=== PATIENT | male | born 1925 | race Caucasian/White ===

== ENCOUNTER 2016-05-20 11:44 | Emergency (ER) | payer MEDICARE, OTHER ==
[~2016-05-20] VITALS: Ht 172.7 cm; Wt 72.0 kg
[2016-05-20 12:23] LABS: BASOPHILS % (AUTO) 1 % (0-2); EOSINOPHILS # (AUTO) 0.4 10^3uL; EOSINOPHILS % (AUTO) 6 % (0-4); LYMPHOCYTES # (AUTO) 1.3 X10^3; MEAN CORPUSCULAR HGB CONC 33.5 g/dL (31.0-37.0); MEAN CORPUSCULAR VOLUME 90 FL (80-100); MEAN PLATELET VOLUME 8.9 FL (6.0-9.5); MONOCYTES # (AUTO) 0.5 X10^3; MONOCYTES % (AUTO) 8 % (3-11); NEUTROPHILS # (AUTO) 4.3 X10^3; NEUTROPHILS % (AUTO) 66 % (51-67); PLATELET COUNT 169 10^3uL (150-450); WHITE BLOOD COUNT 6.52 10^3uL (4.0-11.0)
[2016-05-20 12:38] LABS: ALBUMIN 3.6 g/dL (3.4-5.0); ANION GAP 11.7 MEQ/L (3-15); CALCULATED IONIZED CALCIUM 3.9 mg/dL (3.8-4.6); TOTAL PROTEIN 7.2 g/dL (6.4-8.5)
[2016-05-20] MEDS ORDERED: cefTRIAXone SODIUM 1,000 MG in SODIUM CHLORIDE 50 ML IV ONE (13:25)
[2016-05-20 14:31] VITALS: BP 131/57
== END 2016-05-20 14:14 | disposition home or self-care (01) ==
LOC: ED 11:49
DX: J18.9 Pneumonia, unspecified organism (principal); E86.0 Dehydration
CPT/HCPCS: 36415; 71020; 80053; 83880; 85025; 96361; 96365; 99283; J0696; J7030

== ENCOUNTER 2016-05-22 19:50 | Inpatient (IN) | payer MEDICARE, OTHER ==
[~2016-05-22] VITALS: Ht 175.3 cm; Wt 70.3 kg
[2016-05-22 21:09] LABS: BASOPHILS % (AUTO) 0 % (0-2); EOSINOPHILS # (AUTO) 0.2 10^3uL; EOSINOPHILS % (AUTO) 4 % (0-4); LYMPHOCYTES # (AUTO) 1.1 X10^3; MEAN CORPUSCULAR HEMOGLOBIN 30.7 PG (26.0-34.0); MEAN CORPUSCULAR VOLUME 90 FL (80-100); MONOCYTES # (AUTO) 0.5 X10^3; MONOCYTES % (AUTO) 9 % (3-11); NEUTROPHILS # (AUTO) 3.8 X10^3; NEUTROPHILS % (AUTO) 66 % (51-67); PLATELET COUNT 170 10^3uL (150-450); WHITE BLOOD COUNT 5.67 10^3uL (4.0-11.0)
[2016-05-22 21:22] LABS: ALBUMIN 3.4 g/dL (3.4-5.0); ALKALINE PHOSPHATASE 112 U/L (38-126); ANION GAP 10.5 MEQ/L (3-15); BUN/CREATININE RATIO 26 (10-20); CALCULATED IONIZED CALCIUM 3.9 mg/dL (3.8-4.6); CREATINE KINASE 86 U/L (55-170); TOTAL PROTEIN 6.7 g/dL (6.4-8.5)
[2016-05-22 22:32] LABS: BILIRUBIN,URINE Negative (Negative); CLARITY,URINE Clear; COLOR,URINE Yellow; GLUCOSE, URINE (UA) Negative (Negative); LEUKOCYTE ESTERASE ,URINE Negative (Negative); UROBILINOGEN,URINE 0.2 mg/dL (0.2-1.0)
[2016-05-22 22:41] LABS: URINE CENTRIFUGED VOLUME 12 mL
[2016-05-23] VITALS (7 sets, daily range): BP systolic 114–135; BP diastolic 58–80
[2016-05-23] MEDS ORDERED: AZITHROMYCIN VIAL 500 MG in SODIUM CHLORIDE 250 ML IV ONE (00:55)
[2016-05-23] MEDS ORDERED: cefTRIAXone SODIUM 1,000 MG in SODIUM CHLORIDE 50 ML IV ONE (00:55)
[2016-05-23] MEDS ORDERED: [UNRECOGNIZED DRUG - OTHER] INH PRN (02:10)
[2016-05-23] MEDS ORDERED: TRIAMCINOLONE ACETONIDE TOP PRN (02:10)
[2016-05-23] MEDS ORDERED: SODIUM CHLORIDE 250 ML ONE ×2 (02:16→03:52)
[2016-05-23] MEDS ORDERED: AZITHROMYCIN 500 MG (ZITHROMAX) VIAL IV ONE (02:16)
--- NOTE | 2016-05-23 02:55 | NUR ---
Pt admitted to Room 310 as inpatient for pneumonia (HCAP) from ER. Pt transferred from ER cart to bed using slide board and 4 assist. Pt states he normally uses wheelchair at long-term. Pt is alert and oriented, able to answer questions correctly. Some uncertainity as to how capable pt is of following commands. Appears to have some confusion. Pt is [place], wears hearing aid in left ear. Pt was incontinent of urine, medardo care provided. Pt was oriented to room. Tab alarm on. Call light in reach. Side rails up times two. Will continue to monitor.
--- NOTE | 2016-05-23 03:10 | NUR ---
Dr. Hawthorne in with patient.
[2016-05-23] MEDS ORDERED: SENNOSIDES/DOCUSATE 8.6MG/50MG (SENOKOT S) TABLET PO PRN (03:20)
[2016-05-23] MEDS ORDERED: VANCOMYCIN 1,000 MG in SODIUM CHLORIDE 250 ML IV SCH (03:20)
[2016-05-23] MEDS ORDERED: CEFEPIME 2 GM (MAXIPIME) VIAL IV ONE (03:53)
[2016-05-23] MEDS ORDERED: VANCOMYCIN 1000 MG VIAL ONE (03:53)
[2016-05-23] MEDS ORDERED: SODIUM CHLORIDE 100 ML ONE (03:53)
[2016-05-23] MEDS ORDERED: SODIUM CHLORIDE FLUSH 10 ML ONE (03:58)
[2016-05-23] MEDS: VANCOMYCIN 1500 MG in NS IV 300 ML IV SCH ×6 (04:00→21:12)
[2016-05-23] MEDS: VANCOMYCIN COMPOUNDED BY PHARMACY IV SCH ×2 (04:00→21:13)
[2016-05-23] MEDS: CEFEPIME 2,000 MG in SODIUM CHLORIDE 100 ML IV SCH ×2 (04:02→20:28)
--- NOTE | 2016-05-23 05:45 | NUR ---
Pt has been sleeping since admittance. IV abx infusing now. No signs discomfort. No nose bleeds observed. No needs at this time. Call light in reach, side rails up times two, tab alarm on.
[2016-05-23] MEDS ORDERED: ALBUTEROL 0.083% NEB SOLUTION 2.5 MG/3 ML VIAL INH PRN (08:05)
[2016-05-23] MEDS ORDERED: TRIAMCINOLONE 0.1% TOP PRN (08:10)
[2016-05-23] MEDS ORDERED: CALCIUM CARBONATE 200 MG PO SCH (09:00)
[2016-05-23] MEDS ORDERED: CHOLECALCIFEROL PO SCH (09:00)
[2016-05-23] MEDS ORDERED: POTASSIUM CHLORIDE ER 20 MEQ TABLET PO SCH (09:00)
[2016-05-23] MEDS ORDERED: LEVOTHYROXINE 88 MCG (LEVOTHORID) TABLET PO SCH (09:00)
[2016-05-23] MEDS: ENOXAPARIN 40 MG/0.4 ML (LOVENOX) SYR SC SCH (09:01)
[2016-05-23] MEDS: FINASTERIDE (PROSCAR) 5 MG TAB PO SCH (09:02)
[2016-05-23] MEDS: CALCIUM CITRATE/VITAMIN D3 315MG/250IU (CALCITRATE +D) TABLET PO SCH (09:02)
[2016-05-23] MEDS: CITALOPRAM 10 MG (CELEXA) TABLET PO SCH (09:02)
[2016-05-23] MEDS: LEVOTHYROXINE 88 MCG (LEVOTHORID) TABLET PO SCH (09:15)
--- NOTE | 2016-05-23 14:20 | NUR ---
MULTIDISCIPLINARY MTG/DR. BUTLER: Pt. being treated for HCAP and he had already been on antibiotics or pneumonia prior to admission. Pt. was brought in for coughing up blood. Dr. Butler plans to discuss this further with Pt. and then decide if Pt. needs further imaging. ST ordered to complete a swallow evaluation for Pt. No discharge needs identified at this time.
--- NOTE | 2016-05-23 14:47 | NUR ---
Med Rec complete via Pharm student via
--- NOTE | 2016-05-23 14:48 | NUR ---
Pharmacy Dosed Vanco S: Pneumonia O: 89 M 69in 70.3kg SCr 0.8mg/dL A/P: Start Vancomycin 1500mg IV q18h with a predicted trough of 17.49 due 05/25/16 @0996
--- NOTE | 2016-05-23 17:12 | NUR ---
The patient is cooperative and compliant with all cares. He is up for hygiene and morning meal this AM. VSS and WNL. Patient is alert and oriented but is hard of hearing. No evidence of bleeding and further workup in process. Gene passes swallow evaluation this afternoon and will remain on mechanical soft diet. Discussed cares with daughter (DPOA) and care givers from [facility]. Assessment is ongoing. Gene is currently up in chair waiting for afternoon meal.
--- NOTE | 2016-05-23 18:57 | NUR ---
Report given to Regina HERRMANN and care relinquished
--- NOTE | 2016-05-23 20:59 | NUR ---
Pt found on RA while sleeping in bed, SPO2 95%, HR 81. Pt wakes slightly but is non verbal, acapella not done at this time.
[2016-05-23] MEDS ORDERED: guaiFENesin ER 600 MG (MUCINEX) TAB PO SCH (21:00)
[2016-05-24 00:08] VITALS: BP 128/65
[2016-05-24] MEDS ORDERED: AZITHROMYCIN VIAL 500 MG in SODIUM CHLORIDE 250 ML IV ONE (00:55)
[2016-05-24 06:02] LABS: BASOPHILS % (AUTO) 0 % (0-2); EOSINOPHILS # (AUTO) 0.3 10^3uL; EOSINOPHILS % (AUTO) 6 % (0-4); LYMPHOCYTES # (AUTO) 1.1 X10^3; MEAN CORPUSCULAR HEMOGLOBIN 30.5 PG (26.0-34.0); MEAN CORPUSCULAR HGB CONC 34.1 g/dL (31.0-37.0); MEAN CORPUSCULAR VOLUME 89 FL (80-100); MEAN PLATELET VOLUME 9.1 FL (6.0-9.5); MONOCYTES # (AUTO) 0.5 X10^3; MONOCYTES % (AUTO) 10 % (3-11); NEUTROPHILS # (AUTO) 2.7 X10^3; NEUTROPHILS % (AUTO) 61 % (51-67); PLATELET COUNT 143 10^3uL (150-450); WHITE BLOOD COUNT 4.54 10^3uL (4.0-11.0)
[2016-05-24] MEDS: LEVOTHYROXINE 88 MCG (LEVOTHORID) TABLET PO SCH (06:19)
--- NOTE | 2016-05-24 06:22 | NUR ---
Pt rests in long intervals throughout the night. Placed on 1L oxygen at HS by RT Gibran per order. SL intact. Occasional moist cough noted. No needs at this time.
[2016-05-24 06:51] LABS: ALBUMIN 3.1 g/dL (3.4-5.0); ANION GAP 9.4 MEQ/L (3-15); CALCULATED IONIZED CALCIUM 4.2 mg/dL (3.8-4.6); TOTAL PROTEIN 6.2 g/dL (6.4-8.5)
[2016-05-24 07:20] VITALS: BP 134/70
[2016-05-24] MEDS: FINASTERIDE (PROSCAR) 5 MG TAB PO SCH (08:36)
[2016-05-24] MEDS ORDERED: SODIUM CHLORIDE 100 ML ONE (08:36)
[2016-05-24] MEDS: CITALOPRAM 10 MG (CELEXA) TABLET PO SCH (08:36)
[2016-05-24] MEDS: CEFEPIME 2,000 MG in SODIUM CHLORIDE 100 ML IV SCH ×2 (08:42→20:06)
[2016-05-24] MEDS ORDERED: NS FLUSH 10 ML PRN IV (09:05)
[2016-05-24] MEDS: guaiFENesin SYRUP 200 MG/10 ML (ROBITUSSIN) UDC PO SCH ×3 (09:23→20:06)
[2016-05-24] MEDS: POTASSIUM CHLORIDE ORAL SOLUTION 20 MEQ/15 ML (KCL) UDC PO SCH (09:24)
[2016-05-24] MEDS: CALCIUM CITRATE/VITAMIN D3 315MG/250IU (CALCITRATE +D) TABLET PO SCH (09:25)
[2016-05-24] MEDS: ENOXAPARIN 40 MG/0.4 ML (LOVENOX) SYR SC SCH (09:26)
--- NOTE | 2016-05-24 10:32 | NUR ---
NUTRITION ASSESSMENT Level 1 Patient: Owen Porter Age/Sex: 89/M Date Screened: 05-24-16 Weight: 154.6#/70.3 kg Height: 69 inches Primary Diagnosis: pneumonia Diet Order: mechanical soft Relevant labs: glucose 88 Food allergies: N Nutrition Assessment Criteria Age over 80: 4 points Body Mass Index (BMI) under 19: N Admission Screening Indicates Risk? 3 points Moderate/High Risk Diagnosis: 3 points TPN or PPN: N NPO or clear liquid diet: N Serum Glucose <70 or >180: N Hgb A1c >6.7: N/A Total: 10 points Risk Screen: __ Patient at low nutritional risk based on available data; reevaluate in 5-7 days __ Patient at moderate nutritional risk based on available data; reevaluate in 3-5 days _X_ Patient at high nutritional risk; complete Nutrition Assessment within 48 hours of admission.
--- NOTE | 2016-05-24 13:09 | NUR ---
NUTRITION ASSESSMENT Level II Patient: Owen Porter Age/Sex: 89/M Date Assessed: 05-24-16 ASSESSMENT Pertinent History: Patient admitted with pneumonia and screened at high nutritional risk secondary to elderly age and dysphagia. PMHx includes hypothyroidism and vitamin D deficiency. He lives in a senior living. Pt. denied weight changes or GI concerns. Noted speech eval that showed no s/s aspiration. Pt. is aware of swallow precautions and his usual diet is mechanical soft. He does not have teeth or dentures. Meds/Nutrition: KCl, Synthroid, calcium +D Weight: 154.6#/70.3 kg Height: 69 inches Body Mass Index (BMI): 22.9 [place] Body Weight : 160#/72.7 kg % IBW: 96% GASTROINTESTINAL Appetite: improved, now eating 100% Diet Order: mechanical soft Unintentional loss of >10 lbs. in 3 months: N Difficult to chew/swallow: Yes Diabetes: N Relevant Labs: glucose 88 Calculations for Nutritional Assessment Estimated calorie needs: 25-28 kcals/kg = 1,750-1,960 kcals Estimated protein needs: 1.0-1.2 g/kg = 70-84 g./day DIAGNOSIS 1. Nutrition Diagnosis: Difficulty chewing related to edentulism as evidenced by need for mechanical soft diet in order to appropriately swallow. NUTRITIONAL INTERVENTION Goal: Patient will receive adequate nutrition to meet his needs in an appropriate texture. Plan: Will provide mechanical soft diet as ordered and monitor intake for adequacy. MONITORING & EVALUATION _X_ Monitor patients menu selections _X_ Monitor patients food intake per nursing notes __ Monitor NPO/clear liquid days __ Monitor lab values __ Monitor I&O __ Other
--- NOTE | 2016-05-24 14:40 | NUR ---
Acapella given to pt at this time, pt was able to understand how to use and did 10 breaths with me. Pt is on room air SPO2 94%.
[2016-05-24 15:47] VITALS: BP 108/52
[2016-05-24] MEDS: VANCOMYCIN COMPOUNDED BY PHARMACY IV SCH (16:52)
[2016-05-24] MEDS: VANCOMYCIN 1500 MG in NS IV 300 ML IV SCH ×3 (16:52)
--- NOTE | 2016-05-24 19:06 | NUR ---
Pt rests in chair at this time. SL intact. Skin warm, dry, intact. Resprs nonlabored, even on RA. Pt denies needs.
--- NOTE | 2016-05-24 19:36 | NUR ---
Pt is sitting up in recliner reading the newspaper, alert and oriented x 2, Resp are even and nonlabored, HRRR, BS are active x 4 quadrants. IV is SL at this time, no redness, swelling, or s/s of infection noted at this time. Denies pain or discomfort at this time. See assessment for further information. Call light in reach, tab alarm on, will continue to monitor.
[2016-05-24] MEDS: NS FLUSH 3 ML DAILY IV SCH (20:06)
[2016-05-24 23:55] VITALS: BP 120/59
[2016-05-25] MEDS: guaiFENesin SYRUP 200 MG/10 ML (ROBITUSSIN) UDC PO SCH ×4 (01:00→17:43)
--- NOTE | 2016-05-25 04:48 | NUR ---
Pt has been resting in bed asleep most of this shift, has been turned and changed every 2hrs, denies pain or discomfort during this shift. Bed alarm is on, call light in reach, will continue to monitor.
[2016-05-25] MEDS: LEVOTHYROXINE 88 MCG (LEVOTHORID) TABLET PO SCH (06:00)
[2016-05-25] MEDS: ACETAMINOPHEN 325 MG TAB (TYLENOL) PO PRN ×2 (07:50→17:48)
--- NOTE | 2016-05-25 07:52 | NUR ---
Awakes easily for morning assessment. States he has had a bad headache all night. Tylenol given. Sits up in bed for breakfast. Eats independently.
[2016-05-25 07:59] VITALS: BP 114/62
[2016-05-25] MEDS: CEFEPIME 2,000 MG in SODIUM CHLORIDE 100 ML IV SCH ×2 (08:45→20:31)
[2016-05-25] MEDS: ENOXAPARIN 40 MG/0.4 ML (LOVENOX) SYR SC SCH (08:45)
[2016-05-25] MEDS: POTASSIUM CHLORIDE ORAL SOLUTION 20 MEQ/15 ML (KCL) UDC PO SCH (08:45)
[2016-05-25] MEDS: NS FLUSH 3 ML PRN IV ×2 (08:46→11:45)
[2016-05-25] MEDS: FINASTERIDE (PROSCAR) 5 MG TAB PO SCH (08:47)
[2016-05-25] MEDS: CALCIUM CITRATE/VITAMIN D3 315MG/250IU (CALCITRATE +D) TABLET PO SCH (08:47)
[2016-05-25] MEDS: CITALOPRAM 10 MG (CELEXA) TABLET PO SCH (08:47)
[2016-05-25] MEDS: VANCOMYCIN COMPOUNDED BY PHARMACY IV SCH (10:00)
[2016-05-25] MEDS: VANCOMYCIN 1500 MG in NS IV 300 ML IV SCH ×3 (11:44)
--- NOTE | 2016-05-25 14:40 | NUR ---
Pharmacy Dosed Vanco S: Pneumonia O: 89 M 69in 70.3kg SCr 0.8mg/dL SCr 63 ml/min, Blood Cx negative to date A/P: current Vancomycin 1500mg IV q18h. Trough before 4th dose = 10.9. talked with Dr. Ramesh & Mauricio Strong about plan for abx therapy. Will transition to oral abx on 05-26-16, so keeping Vancomycin dosing the same for today.
[2016-05-25] MEDS ORDERED: SODIUM CHLORIDE 100 ML IV PRN (14:55)
--- NOTE | 2016-05-25 15:15 | NUR ---
Information sent to [facility] to review for acceptance to skilled care at their facility. Possibly discharge tomorrow.
[2016-05-25 15:27] VITALS: BP 125/60
--- NOTE | 2016-05-25 18:26 | NUR ---
Patient has been up to chair for meals, walked in berry with PT and napped this afternoon in bed. Has voiced few complaints. Did c/o headache again this evening and tylenol given at suppertime for pain.
--- NOTE | 2016-05-25 19:57 | NUR ---
Pt is sitting up in bed watching tv, resp are even and nonlabored, BS are active x 4 quadrants, HRRR. SL is patent, no redness, swelling, or s/s of infection noted at this time. Denies pain or discomfort at this time. See assessment for further information. Call light is in reach, bed alarm is on, will continue to monitor.
[2016-05-26] MEDS: guaiFENesin SYRUP 200 MG/10 ML (ROBITUSSIN) UDC PO SCH ×3 (00:33→12:25)
[2016-05-26 00:53] VITALS: BP 132/61
[2016-05-26] MEDS: VANCOMYCIN COMPOUNDED BY PHARMACY IV SCH (04:00)
[2016-05-26] MEDS: VANCOMYCIN 1500 MG in NS IV 300 ML IV SCH ×3 (04:15)
[2016-05-26] MEDS: NS FLUSH 3 ML DAILY IV SCH (04:15)
[2016-05-26] MEDS: LEVOTHYROXINE 88 MCG (LEVOTHORID) TABLET PO SCH (05:26)
[2016-05-26 07:56] VITALS: BP 114/62
[2016-05-26] MEDS: CALCIUM CITRATE/VITAMIN D3 315MG/250IU (CALCITRATE +D) TABLET PO SCH (08:48)
[2016-05-26] MEDS: CITALOPRAM 10 MG (CELEXA) TABLET PO SCH (08:48)
[2016-05-26] MEDS: FINASTERIDE (PROSCAR) 5 MG TAB PO SCH (08:48)
[2016-05-26] MEDS: POTASSIUM CHLORIDE ORAL SOLUTION 20 MEQ/15 ML (KCL) UDC PO SCH (08:48)
[2016-05-26] MEDS: ENOXAPARIN 40 MG/0.4 ML (LOVENOX) SYR SC SCH (08:53)
[2016-05-26] MEDS: CEFEPIME 2,000 MG in SODIUM CHLORIDE 100 ML IV SCH (08:54)
--- NOTE | 2016-05-26 11:29 | NUR ---
Pt. has been accepted to skilled care at [facility]. The facility will provide transportation back to [place] this afternoon.
--- NOTE | 2016-05-26 14:25 | NUR ---
SL removed with catheter tip intact. Skin warm, dry, intact. Resprs nonlabored, even on RA. Attempted to call report on multiple occasions with busy signal each time. No other number provided for facility. Will continue to attempt to call for report. Pt dismissed at this time via w/c accompanied by [place] facility transportation. Belongings and DC packet sent with patient.
--- NOTE | 2016-05-26 15:29 | NUR ---
Report given to Amber, charge nurse at [facility] at this time.
[2016-05-26] MEDS ORDERED: CEFDINIR 300 MG (OMNICEF) CAPSULE PO SCH (21:00)
== END 2016-05-26 14:25 | DRG 194 ==
LOC: ED 19:52 → MED/SURG 05-23 01:25
PROVIDERS: ADMIT Internal Medicine; ATTEND Internal Medicine
DX: J18.9 Pneumonia, unspecified organism (principal); R04.2 Hemoptysis; R04.0 Epistaxis; Z66 Do not resuscitate; R13.10 Dysphagia, unspecified; R09.02 Hypoxemia; E03.9 Hypothyroidism, unspecified; N40.0 Benign prostatic hyperplasia without lower urinary tract symptoms; E55.9 Vitamin D deficiency, unspecified; R53.1 Weakness; Z95.0 Presence of cardiac pacemaker; Z87.891 Personal history of nicotine dependence
CPT/HCPCS: 36415; 71010; 80053; 80202; 81003; 81015; 82550; 82553; 83605; 84443; 84484; 85025; 85610; 85730; 86140; 87040; 87486; 87581; 87633; 87798; 93005; 93010; 94669; 96374; 99284; 99285